=== PATIENT | male | born 1970 | race Caucasian/White ===

== ENCOUNTER 2017-02-08 15:16 | Emergency (ER) | payer BC ==
--- NOTE | 2017-02-08 16:12 | ED PDOC ---
Arrival/HPI - General Chief Complaint: Upper Extremity Problem/Injury Time Seen by Provider: 02/08/17 15:42 Historian: Patient - History of Present Illness Narrative History of Present Illness (Text): 02/08/17 16:15 A 46 year old male, who denies any significant past medical history, presents to the emergency department for pain and swelling on the middle finger knuckle of the left hand. The patient reports last night he flicked food off his plate with his left middle finger and heard a pop from the same left middle finger, and has been feeling pain and swelling of his left middle finger knuckle. He denies any fever, chills, chest pain, headache, or any other symptoms at this time. Time/Duration: 24 hours (last night) Symptom Onset: Sudden Symptom Course: Unchanged Activities at Onset: Light Context: Home Past Medical History - Provider Review Nursing Documentation Reviewed: Yes - Psychiatric Hx Substance Use: No Family/Social History - Physician Review Nursing Documentation Reviewed: Yes Family/Social History: No Known Family HX Smoking Status: Current Some Days Smoker Hx Alcohol Use: Yes Frequency of alcohol use: Socially Hx Substance Use: No Allergies/Home Meds Allergies/Adverse Reactions: Allergies No Known Allergies Allergy (Verified 02/08/17 15:40) Review of Systems - Review of Systems Constitutional: absent: Fevers Musculoskeletal: Joint Swelling, Other (3rd finger on the left hand ) Physical Exam Vital Signs Reviewed: Yes Vital Signs Temp Pulse Resp BP Pulse Ox 02/08/17 15:37 98.8 F 77 16 136/87 98 Temperature: Afebrile Blood Pressure: Normal Pulse: Regular Respiratory Rate: Normal Appearance: Positive for: Well-Appearing, Non-Toxic, Comfortable Pain Distress: None Mental Status: Positive for: Alert and Oriented X 3 - Systems Exam Head: Present: Atraumatic, Normocephalic Upper Extremity: Present: Normal ROM, Swelling (mild swelling on 3rd mtp joint on left hand dorsum), Erythema (mild), Other (normal flexion and extension of the ) Psychiatric: Present: Alert, Oriented x 3, Normal Insight, Normal Concentration Medical Decision Making ED Course and Treatment: 02/08/17 16:15 Impression: A 46 year old male with swelling to the 3rd finger on the left hand. Differential Diagnosis included but are not limited to: 3rd MTP sprain vs. tendonitis vs. gout vs cellulitis Plan: -- Left hand X-ray -- Reassess and disposition Prior Visits: Notes and results from previous visits were reviewed. Patient was last seen in the emergency department on Progress Notes: 02/08/17 16:38 Patient with no signficiant medical history. Exam as noted; x-ray is negative for any fx. Patient with no history of gout - less likely. Patient with likely sprain, but given mild erythema and warmth, will start abx as well for possible cellulitis. - RAD Interpretation Radiology Orders: 02/08/17 16:08 HAND LEFT 3 VIEWS ROUTINE [RAD] Stat - PA / JUNIOR ACCOUNT EXECUTIVE / Resident Statement MD/DO has reviewed & agrees with the documentation as recorded. - Scribe Statement The provider has reviewed the documentation as recorded by the Augustin Jacobs Provider Scribe Attestation: All medical record entries made by the Scribe were at my direction and personally dictated by me. I have reviewed the chart and agree that the record accurately reflects my personal performance of the history, physical exam, medical decision making, and the department course for this patient. I have also personally directed, reviewed, and agree with the discharge instructions and disposition. Disposition/Present on Arrival - Present on Arrival Any Indicators Present on Arrival: No History of DVT/PE: No History of Uncontrolled Diabetes: No Urinary Catheter: No History of Decub. Ulcer: No History Surgical Site Infection Following: None - Disposition Have Diagnosis and Disposition been Completed?: Yes Diagnosis: Pain of left middle finger Disposition: HOME/ ROUTINE Disposition Time: 16:40 Patient Plan: Discharge Condition: GOOD Additional Instructions: Maintain finger splint; use naprosyn for pain. Apply ice over the affected area. Take the cephalexin as prescribed. Follow up with Dr. Sevilla, hand specialist. Return to the emergency department if any new concerning symptoms. Prescriptions: Cephalexin [Keflex] 500 mg PO TID #21 cap Naproxen [Naprosyn] 500 mg PO BID PRN #20 tab PRN Reason: Pain Referrals: Jane Sevilla MD [Non-Staff] - Follow up with primary Forms: [employer] (Tajik)
[2017-02-08 16:55] VITALS: BP 138/86; PULSE 74; RESP 17; TEMP 98.6; O2SAT 99
--- NOTE | 2017-02-09 08:49 | RAD ---
PROCEDURE: Left Hand Radiographs. HISTORY: L 3rd MTP swelling COMPARISON: None. FINDINGS: BONES: Normal. No fracture. JOINTS: Normal. No osteoarthritic changes. SOFT TISSUES: Normal. OTHER FINDINGS: None. IMPRESSION: No acute findings related to/accounting for the clinical presentation. No preliminary report provided by emergency department personnel.
== END 2017-02-08 16:56 | disposition home or self-care (01) ==
LOC: ED 15:16
DX: M79.645 Pain in left finger(s) (principal)

== ENCOUNTER 2018-08-21 16:10 | Emergency (ER) | payer BC ==
[2018-08-21 16:42] VITALS: TEMP 97.9; O2SAT 99
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
[2018-08-21 18:41] VITALS: BP 147/87; PULSE 75; RESP 18
== END 2018-08-21 18:40 | disposition home or self-care (01) ==
LOC: ED 16:10
DX: S00.83XA Contusion of other part of head, initial encounter (principal); Y04.0XXA Assault by unarmed brawl or fight, initial encounter